=== PATIENT | female | born 1980 | race Caucasian/White ===

== ENCOUNTER 2016-12-10 12:21 | Emergency (ER) | payer OTHER ==
[~2016-12-10] VITALS: Ht 160 cm; Wt 59.1 kg
[2016-12-10 12:49] VITALS: BP 112/74; PULSE 82; RESP 14; O2SAT 100
--- NOTE | 2016-12-10 13:40 | ED.REPORT ---
HPI-Overdose/Alcohol Toxicity Date of Service Dec 10, 2016 ED Provider: Stacie Arcos History of Present Illness: sore on mid chest, drained by rosie about 1 month ago, requesting hep c and tb test for long term, trying to get into [facility] long [facility], interested in other shelters. primary care is no one. 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, inject)No: Access to firearms, Alcohol use, Close associate suicide, Family Hx of Suicide RF Statements: Risk factors reviewed Past Medical History Past Medical History Depression Smoking History Current Every Day Smoker Social History Alcohol Use: >5 per day Drug Use: THC Other Social History: Homeless Review of Systems Basic Review of Systems : No dysuria, No frequency Allergy / Immune: No allergy Physical Exam Initial Vital Signs Vital Signs (First) Date Time Temp Pulse Resp B/P Pulse Ox O2 Delivery O2 Flow Rate FiO2 12/10/16 12:49 36.6 82 14 112/74 100 Room Air Initial VS: Reviewed, Vital signs normal Head / Eyes: Atraumatic, Normocephalic, PERRL ENT: Mucous membranes moist, Conjunctiva normal, No scleral icterus Neck: Supple, Non-tender, Full range of motion Back: No CVA tenderness Lymphatic: No lymphadenopathy Extremities: Vascular intact, Neuro intact, No swelling, No tenderness Skin: Warm, Dry, No cyanosis General/Constitutional: Awake, Alert, No acute distress, Well appearing, Well developed, Well hydrated, Well nourished, Cooperative, Not toxic appearing Respiratory / Chest: Atraumatic, Breath sounds NL, Breath sounds = bilat, No respiratory distress Cardiovascular: Heart rate NL, Regular rhythm, Heart sounds NL Abdomen: Atraumatic, Soft, Non-tender Rash / Lesion Notes: nickel size area of swelling on mid chest, visible drainage. Many other pick sores visible, none infected, in various stages of healing Interpretation & Diagnostics Lab Results Interpretation Test 12/10/16 15:07 Hepatitis C Comment . Lab Results Interpretation: PPD placed in ER Re-Eval/Medical Decision Med Decision/Clinical Course 36 year old female presents for evualation of draining abscess and hep C testing and ppd placement. Chest x-ray is negative for any sign of active TB. Discharge & Departure Impression: Primary Impression: Abscess Additional Impression: Patient request for diagnostic testing Patient Instructions: Abscess (ED) Additional Instructions: The abscess on your chest is draining. Use bactroban to the site 3 times a day for 7 days. Make sure you get it wet in the shower. Use bactrim in the am and pm for 7 days. The acute hepatitis panel will not be pack for a few days. The chest x-ray is negative. You will need to return to the ER for a ppd reading in 2 to 3 days. Please establish in primary care, consider the Residency clinic. Referrals: [facility] EDSupervising Provider for APC: Ivonne Paulino MD copies to: [facility] Stacie Arcos Dec 10, 2016 13:40
[2016-12-10] MEDS ORDERED: Trimethoprim-Sulfa 160 mg-800 mg Tablet PO ONE (13:55)
[2016-12-10] MEDS ORDERED: [UNRECOGNIZED DRUG - CODE] INTRADERM ONE (13:55)
[2016-12-10] MEDS ORDERED: Mupirocin 2% 22 Gm Ointment TOPICAL ONE (13:55)
--- NOTE | 2016-12-10 16:18 | DRSVH ---
PROCEDURE: X-RAY CHEST, TWO VIEWS ([id number]) INDICATIONS: rule out Tuberculosis TECHNIQUE: 2 views of the chest were acquired. COMPARISON: None. FINDINGS: Surgical changes and devices: None. Lungs and pleura: No pleural effusions or pneumothorax. Lungs are clear. Mediastinum: Mediastinal contours are normal. Heart size is normal. Bones and chest wall: No suspicious bony abnormalities. Mild levoconvex scoliotic curvature is noted . Soft tissues appear unremarkable. IMPRESSION: No acute cardiopulmonary process is seen. Dictated by: Murali Lyons M.D. on 12/10/2016 at 16:14 Approved by: Murali Lyons M.D. on 12/10/2016 at 16:16
[2016-12-10 16:19] VITALS: BP 111/84; PULSE 88; RESP 18; O2SAT 98
[2016-12-11 02:08] LABS: Hepatitis A Antibody IgM Negative (Negative); Hepatitis B Core Antibody IgM Negative (Negative)
== END 2016-12-10 16:20 | disposition home or self-care (01) ==
LOC: SED 12:21
DX: L02.213 Cutaneous abscess of chest wall (principal); F32.9 Major depressive disorder, single episode, unspecified; F17.200 Nicotine dependence, unspecified, uncomplicated; Z59.0 Homelessness
CPT/HCPCS: 36415; 71020; 86705; 86709; 87340; 87341; 99284; G0472; J9031